=== PATIENT | male | born 1960 | race Two or more races ===

== ENCOUNTER 2021-11-04 08:03 | Emergency (ER) | payer BC, OTHER ==
[~2021-11-04] VITALS: Ht 185.4 cm; Wt 83.9 kg
[2021-11-04 08:12] VITALS: BP 121/61
[2021-11-04] MEDS ORDERED: KETOROLAC TROMETHAMINE INJ 60 MG/2 ML VIAL IM ONE (08:30)
[2021-11-04] MEDS ORDERED: KETOROLAC TROMETHAMINE INJ 30 MG/ML VIAL ONE (08:41)
[2021-11-04] MEDS ORDERED: IBUP-1957 PO (10:12)
--- NOTE | 2021-11-04 10:32 | NUR ---
Patient discharged to home in stable condition. Written and verbal after care instructions given. Patient verbalizes understanding of instruction.
== END 2021-11-04 10:36 | disposition home or self-care (01) ==
LOC: ER 08:15
DX: S93.402A Sprain of unspecified ligament of left ankle, initial encounter (principal); F41.9 Anxiety disorder, unspecified; G47.00 Insomnia, unspecified; M19.90 Unspecified osteoarthritis, unspecified site; X50.1XXA Overexertion from prolonged static or awkward postures, initial encounter; Y93.89 Activity, other specified; Y92.89 Other specified places as the place of occurrence of the external cause; Y99.8 Other external cause status
CPT/HCPCS: 73610; 96372; 99283; J1885